=== PATIENT | male | born 1990 | race Caucasian/White ===

== ENCOUNTER 2020-11-15 14:23 | Emergency (ER) | payer MEDICAID, SELFPAY ==
--- NOTE | ~2020-11-15 | XR_ITS ---
EXAMINATION: LEFT KNEE, 2 VIEW CHEST, LEFT ANKLE, RIGHT RIBS, LEFT FOOT. CLINICAL INFORMATION: Fall COMPARISON: None TECHNIQUE: AP and lateral chest, 3 view right ribs, 3 views left foot, 3 views left ankle, and 4 views left knee. FINDINGS: AP and lateral views of the chest demonstrate small amount of disease within the right costophrenic angle which may relate to atelectasis or scarring. No pneumothorax identified. Heart normal size. No evidence of pulmonary edema. Status post previous right lung surgery with suture lines in place. There is some right pleural thickening present. No acute displaced right rib fracture identified. There is no evidence of acute fracture or dislocation of the left foot. There is a large amount soft tissue swelling seen about the tarsal bones. Views of the left ankle demonstrate a fracture of the medial malleolus with distraction of approximately 2 mm of fracture fragments. There is widening of the medial joint space. No dislocation is evident. Large amount soft tissue swelling is seen about the ankle. Views of the left knee do not demonstrate any evidence of acute fracture or dislocation. Knee joint spaces are maintained. No left knee effusion. XR/XR knee LT 4V IMPRESSION: Left ankle medial malleolar fracture with widening of the medial joint space. No acute parenchymal disease within the chest. No acute displaced right rib fracture. No acute fracture of the left knee. No acute fracture of the left foot.
--- NOTE | ~2020-11-15 | XR_ITS ---
EXAMINATION: LEFT KNEE, 2 VIEW CHEST, LEFT ANKLE, RIGHT RIBS, LEFT FOOT. CLINICAL INFORMATION: Fall COMPARISON: None TECHNIQUE: AP and lateral chest, 3 view right ribs, 3 views left foot, 3 views left ankle, and 4 views left knee. FINDINGS: AP and lateral views of the chest demonstrate small amount of disease within the right costophrenic angle which may relate to atelectasis or scarring. No pneumothorax identified. Heart normal size. No evidence of pulmonary edema. Status post previous right lung surgery with suture lines in place. There is some right pleural thickening present. No acute displaced right rib fracture identified. There is no evidence of acute fracture or dislocation of the left foot. There is a large amount soft tissue swelling seen about the tarsal bones. Views of the left ankle demonstrate a fracture of the medial malleolus with distraction of approximately 2 mm of fracture fragments. There is widening of the medial joint space. No dislocation is evident. Large amount soft tissue swelling is seen about the ankle. Views of the left knee do not demonstrate any evidence of acute fracture or dislocation. Knee joint spaces are maintained. No left knee effusion. XR/XR chest 2V IMPRESSION: Left ankle medial malleolar fracture with widening of the medial joint space. No acute parenchymal disease within the chest. No acute displaced right rib fracture. No acute fracture of the left knee. No acute fracture of the left foot.
--- NOTE | ~2020-11-15 | XR_ITS ---
EXAMINATION: LEFT KNEE, 2 VIEW CHEST, LEFT ANKLE, RIGHT RIBS, LEFT FOOT. CLINICAL INFORMATION: Fall COMPARISON: None TECHNIQUE: AP and lateral chest, 3 view right ribs, 3 views left foot, 3 views left ankle, and 4 views left knee. FINDINGS: AP and lateral views of the chest demonstrate small amount of disease within the right costophrenic angle which may relate to atelectasis or scarring. No pneumothorax identified. Heart normal size. No evidence of pulmonary edema. Status post previous right lung surgery with suture lines in place. There is some right pleural thickening present. No acute displaced right rib fracture identified. There is no evidence of acute fracture or dislocation of the left foot. There is a large amount soft tissue swelling seen about the tarsal bones. Views of the left ankle demonstrate a fracture of the medial malleolus with distraction of approximately 2 mm of fracture fragments. There is widening of the medial joint space. No dislocation is evident. Large amount soft tissue swelling is seen about the ankle. Views of the left knee do not demonstrate any evidence of acute fracture or dislocation. Knee joint spaces are maintained. No left knee effusion. XR/XR foot LT 2V IMPRESSION: Left ankle medial malleolar fracture with widening of the medial joint space. No acute parenchymal disease within the chest. No acute displaced right rib fracture. No acute fracture of the left knee. No acute fracture of the left foot.
--- NOTE | ~2020-11-15 | XR_ITS ---
EXAMINATION: LEFT KNEE, 2 VIEW CHEST, LEFT ANKLE, RIGHT RIBS, LEFT FOOT. CLINICAL INFORMATION: Fall COMPARISON: None TECHNIQUE: AP and lateral chest, 3 view right ribs, 3 views left foot, 3 views left ankle, and 4 views left knee. FINDINGS: AP and lateral views of the chest demonstrate small amount of disease within the right costophrenic angle which may relate to atelectasis or scarring. No pneumothorax identified. Heart normal size. No evidence of pulmonary edema. Status post previous right lung surgery with suture lines in place. There is some right pleural thickening present. No acute displaced right rib fracture identified. There is no evidence of acute fracture or dislocation of the left foot. There is a large amount soft tissue swelling seen about the tarsal bones. Views of the left ankle demonstrate a fracture of the medial malleolus with distraction of approximately 2 mm of fracture fragments. There is widening of the medial joint space. No dislocation is evident. Large amount soft tissue swelling is seen about the ankle. Views of the left knee do not demonstrate any evidence of acute fracture or dislocation. Knee joint spaces are maintained. No left knee effusion. XR/XR ribs RT 2V IMPRESSION: Left ankle medial malleolar fracture with widening of the medial joint space. No acute parenchymal disease within the chest. No acute displaced right rib fracture. No acute fracture of the left knee. No acute fracture of the left foot.
--- NOTE | ~2020-11-15 | XR_ITS ---
EXAMINATION: LEFT KNEE, 2 VIEW CHEST, LEFT ANKLE, RIGHT RIBS, LEFT FOOT. CLINICAL INFORMATION: Fall COMPARISON: None TECHNIQUE: AP and lateral chest, 3 view right ribs, 3 views left foot, 3 views left ankle, and 4 views left knee. FINDINGS: AP and lateral views of the chest demonstrate small amount of disease within the right costophrenic angle which may relate to atelectasis or scarring. No pneumothorax identified. Heart normal size. No evidence of pulmonary edema. Status post previous right lung surgery with suture lines in place. There is some right pleural thickening present. No acute displaced right rib fracture identified. There is no evidence of acute fracture or dislocation of the left foot. There is a large amount soft tissue swelling seen about the tarsal bones. Views of the left ankle demonstrate a fracture of the medial malleolus with distraction of approximately 2 mm of fracture fragments. There is widening of the medial joint space. No dislocation is evident. Large amount soft tissue swelling is seen about the ankle. Views of the left knee do not demonstrate any evidence of acute fracture or dislocation. Knee joint spaces are maintained. No left knee effusion. XR/XR ankle LT min 3V IMPRESSION: Left ankle medial malleolar fracture with widening of the medial joint space. No acute parenchymal disease within the chest. No acute displaced right rib fracture. No acute fracture of the left knee. No acute fracture of the left foot.
[2020-11-15 14:33] VITALS: BP 127/79; PULSE 102; RESP 18; TEMP 36.6; O2SAT 98; BMI 23.7
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
[2020-11-15] MEDS: Ketorolac Tromethamine 30 MG/ML VIAL IM (17:43)
[2020-11-15] MEDS: oxyCODONE HCl Immed Release 5 MG TABLET 10 MG PO (18:12)
--- NOTE | 2020-11-15 20:26 | PC.NURSE ---
SPLINT TO LEFT FOOT POSTERIOR WITH STIRRUP SPLINT TO LEFT FOOT WITH HELP FROM PCT LISANDRA CHECKED BY DAX HYLTON. +CMS TO TOES.
== END 2020-11-15 18:50 | disposition home or self-care (01) ==
PROVIDERS: Emergency Provider Emergency Medicine Emergency Medical Services
DX: S82.55XA Nondisplaced fracture of medial malleolus of left tibia, initial encounter for closed fracture (principal); S20.211A Contusion of right front wall of thorax, initial encounter; V18.0XXA Pedal cycle driver injured in noncollision transport accident in nontraffic accident, initial encounter; Y93.55 Activity, bike riding; Y92.414 Local residential or business street as the place of occurrence of the external cause; Y99.9 Unspecified external cause status
CPT/HCPCS: 29515; 71046; 71100; 73564; 73610; 73620; 96372; 99284; J1885

== ENCOUNTER → 2020-11-17 13:43 | Outpatient (BNVA) | payer MEDICAID, SELFPAY | PROVIDERS: Visit Provider Physician Assistant | DX: S82.52XA Displaced fracture of medial malleolus of left tibia, initial encounter for closed fracture (principal) | CPT/HCPCS: 99202 ==

== ENCOUNTER 2020-11-20 17:33 | Inpatient (IN) | payer MEDICAID, SELFPAY ==
--- NOTE | 2020-11-19 13:05 | HO.ANESPROP2 ---
Documented by User: Sasha Talbot 11/19/20 13:06 HPI - Anesthesia Eval Consult details Narrative: 30yo M for Ankle Fracture ORIF,operative fixation left ankle PMFSH Active Problems Active Problems: All Active Problems (Updated 11/17/20 @ 17:27 by Demi Smiley PA-C) Fracture of medial malleolus of left tibia (Acute) Past Medical History Medical History (Updated 11/20/20 @ 13:16 by Precious Sosa) Fracture of arm Pneumothorax, right Social History Social History (Updated 11/20/20 @ 13:20 by Precious Sosa) Alcohol intake: unknown Smoking Status: Never smoker Use of substances other than those prescribed or required for medical reasons: No Have you been hit, kicked, punched, or otherwise hurt by someone within the past year? 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 Meds Allergies Allergy/AdvReac Type Severity Reaction Status Date / Time No Known Allergies Allergy Verified 11/15/20 14:38 Exam Exam Date and Time: November 19, 2020 1305 Assessment and Plan Assessment Anesthesia Assessment: Chart Reviewed Documented by User: Precious Sosa 11/20/20 13:33 PMFSH Past Medical History Medical History (Updated 11/20/20 @ 13:16 by Precious Sosa) Fracture of arm Pneumothorax, right Family History Family history of problems with anesthesia: No Surgical History History of Problems with Anesthesia: No Social History Social History (Updated 11/20/20 @ 13:20 by Precious Sosa) Alcohol intake: unknown Smoking Status: Never smoker Use of substances other than those prescribed or required for medical reasons: No Have you been hit, kicked, punched, or otherwise hurt by someone within the past year? 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 Meds Allergies Allergy/AdvReac Type Severity Reaction Status Date / Time No Known Allergies Allergy Verified 11/15/20 14:38 Exam Height,Weight and Vital Signs: Vital Signs Temp Pulse Resp BP Pulse Ox 11/20/20 12:02 79 18 114/75 11/20/20 11:44 97.6 F 78 18 97/68 98 Airway Mallampati Class: II TM Dist: >3cm Neck ROM: Full Heart: RRR Lungs: CTAB Assessment and Plan Assessment Anesthesia Assessment: Anesthesia Plan Discussed and Chart Reviewed Final Anesthetic Review NPO: Yes ASA Class: I Final Preanesthetic Review: No Changes in Pt Med Stat, Meds/Allgs Chart Reviewed, Consent Obtained/Reviewed and Anes Risks/Benef Reviewed Patient Risk: Low Procedure Risk: Intermediate Assessment/Block/Sedation in SS: Assess/Block/Sedation-SS Anesthetic Plan Anesthetic Plan: GA Disposition: Standard PACU
[2020-11-20] VITALS (27 sets, daily range): BP systolic 97–160; BP diastolic 55–97; PULSE 72–117; RESP 12–20; TEMP 36.4–37.3; O2SAT 93–99; BMI 23.7
--- NOTE | ~2020-11-20 | FL_ITS ---
EXAMINATION: XR FLUOROSCOPY WITH IMAGES CLINICAL INFORMATION: Ankle fracture COMPARISON: Previous x-rays 11/15/2020 TECHNIQUE: Fluoroscopy performed by Dr. Shahram Elizalde. Fluoroscopy time: 1.5 minutes DAP: [id number] Images: 6 FINDINGS: Initial image demonstrates a view of the lower leg with a nondisplaced oblique fibular shaft fracture. Subsequent images demonstrate ORIF of the transverse medial malleolar fracture with 2 screws and with improved alignment and new surgical anchors in the distal fibular and tibial metaphysis and stabilization of the distal tibiofibular joint. No ankle mortise widening is seen. FL/FL guidance in OR IMPRESSION: Fluoroscopic guidance for ORIF of left ankle fracture.
[2020-11-20] MEDS: Lactated Ringers 1,000 ML 100 ML IVCONT ×2 (12:02→20:23)
--- NOTE | 2020-11-20 13:27 | MHC.SHP ---
Pre-Procedural Eval Section A The patient is an INPATIENT: No Changes since office visit: Yes Patient answered all questions; No Cold of Flu in the past 2 weeks, No New Medical Problems and No Changes in Medication The History & Physical has been completed within 30 days and I have reviewed it.: Yes Section B Chief Complaint: left ankle fx Allergies: Allergies Allergy/AdvReac Type Severity Reaction Status Date / Time No Known Allergies Allergy Verified 11/15/20 14:38 Plan I have reviewed the history and physical and performed a pertinent physical examination on my patient. No changes have occurred unless specified.
--- NOTE | 2020-11-20 16:01 | P.BOP_ITS ---
Brief Operative Note Date of Service: 11/20/20 Pre-op diagnosis: left medial malleolar fracture Post-op diagnosis: same (left medial malleolus fracture) Procedure: orif medial malleolus orif syndesmosis Implants: 40 mm 4.0 partiall threaded cannulated screws x 2- tiara styrker 2 hol lateral butress plaste with arthrex fiberwire x2 Surgeon: Shahram Elizalde MD Anesthesia: GETA Was an Developer Programmer Analyst used for this Procedure?: No Estimated blood loss (mL): 20 Tourniquet time (min): 102 Pathology: none sent Condition: stable Disposition: PACU
[2020-11-20] MEDS: oxyCODONE HCl Immed Release 5 MG TABLET PO ×2 (16:39→17:17)
[2020-11-20] MEDS: Acetaminophen 325 MG TABLET 650 MG PO (16:39)
[2020-11-20] MEDS: ondansetron HCL 4 MG/2 ML VIAL IVPUSH (16:40)
--- NOTE | 2020-11-20 16:46 | PC.NURSE ---
patient awake conversing resp easy regualar hob elevated. taking sips po fluid. medicated for pain. left ankle elevated further on pillows and ice packs placed.
[2020-11-20] MEDS: HYDROmorphone HCl 0.5 MG/0.5 ML SYRINGE IVPUSH ×5 (16:58→22:35)
--- NOTE | 2020-11-20 17:16 | PC.NURSE ---
dr. yan called to bedside made aware of ongoing pain control issues and medications given iv dilaudid, oxycodone, tylenol, and iv toradol in the O.R. new orders given to administer repeat dose of oxycodone.
[2020-11-20] MEDS: oxyCODONE HCl Immed Release 5 MG TABLET 10 MG PO (18:04)
[2020-11-20] MEDS: oxyCODONE HCl ER 10 MG TAB.ER.12H PO (20:17)
[2020-11-20] MEDS: LORazepam 0.5 MG TABLET PO (21:18)
[2020-11-20] MEDS: Nicotine 21 MG PATCH.TD24 TRANSDERMA (21:18)
[2020-11-21] MEDS: HYDROmorphone HCl 0.5 MG/0.5 ML SYRINGE IVPUSH ×3 (03:25→11:02)
[2020-11-21 04:00] VITALS: BP 119/77; PULSE 77; RESP 18; TEMP 36.9; O2SAT 100
[2020-11-21] MEDS: Lactated Ringers 1,000 ML 100 ML IVCONT (05:14)
[2020-11-21] MEDS: oxyCODONE HCl Immed Release 5 MG TABLET 10 MG PO (05:16)
[2020-11-21 07:51] VITALS: BP 124/69; PULSE 95; RESP 17; TEMP 37.2; O2SAT 98
[2020-11-21] MEDS: oxyCODONE HCl ER 10 MG TAB.ER.12H PO (08:01)
--- NOTE | 2020-11-21 08:52 | MHC.CM.PN ---
PATIENT IS FULLY INDEPENDENT WITH HIS ADLS. HE DOES HAVE A ROLLATOR IN ROOM TO HELP WITH AMBULATION. FRIEND IS IN ROOM TO PROVIDE TRANSPORT HOME AT DISCHARGE, WHICH IS ANTICIPATED FOR TODAY. RN AWARE OF PLAN.
--- NOTE | 2020-11-21 10:32 | P.DS_ITS ---
DS: Providers Provider Date of Service: 11/21/20 Date of admission: 11/20/20 17:33 Primary care physician: None Physician DS: Diagnosis Discharge Diagnosis (1) Fracture of medial malleolus of left tibia: Status: Acute Problem details: THis is a 30 yo male who presented to the office with an injury he sustained to the left ankle. He was found to have a displaced malleolar fracture with widening of the mortise. He was booked for ORIF left ankle. DS: Medications Discharge Medications Home Medications: Previous Rx's Medication Instructions Recorded naproxen 500 mg PO BID PRN #20 tab 11/15/20 acetaminophen 650 mg PO Q4H PRN 30 Days #240 tab 11/21/20 oxycodone 10 mg PO Q4H PRN 7 Days #42 tab 11/21/20 DS: Summary Hospital Course Hospital Course: Mr. Lancaster underwent a successful ORIF left ankle with Dr Elizalde. He was transferred to PACU where he was found to have uncontrollable pain with continued doses of medication. At that time, the decision was made to admit him to Extended stay. He was given Tylenol 650 po q6 hrs prn, Oxycontin 10mg bid, Oxycodone 10mg po q4-6 prn, Dilaudid .5mg q3 prn and Lorazepam .5mg once at bedtime. Prior to discharge he was tolerating pain well. Splint intact. Plan is to discharge him home. Time Spent with Patient Time attestation: Total time spent providing and/or coordinating discharge services: Discharge coordination time: Less than 30 minutes Physical Exam Vital Signs: Vital Signs: Last Vital Signs Temp 98.9 F 11/21/20 07:51 Pulse 95 11/21/20 07:51 Resp 17 11/21/20 07:51 BP 124/69 11/21/20 07:51 Pulse Ox 98 11/21/20 07:51 Body Mass Index 23.7 Const: General: cooperative, healthy appearing and no acute distress Resp: Effort & Inspection: normal respiratory effort and able to speak in complete sentences Cardio: Rate: regular rate Peripheral pulses: Peripheral pulses 2+ throughout GI: Palpation (GI): Soft to palpation Skin: General skin exam: no rashes or lesions noted Extrem: Other: Left ankle splint intact. Toes have full sensation and mobility with good cap. refll. Discharge Plan Discharge Patient Disposition: Home, Self-Care Discharge Diagnosis: s/p Left ankle ORIF Referrals: Demi Smiley PA-C [Physician Filling Station Attendant] - 2 Weeks Discharge Medications: New oxycodone 10 mg tablet 10 mg PO Q4H PRN (Reason: Pain, Moderate (Pain Scale 4-6) 7 Days Qty: 42 RF: 0 acetaminophen 325 mg Tablet 650 mg PO Q4H PRN (Reason: Pain, Mild (Pain Scale 1-3)) 30 Days Qty: 240 RF: 0 Continued naproxen 500 mg tablet 500 mg PO BID PRN (Reason: pain) Qty: 20 RF: 0 Discontinued oxycodone 5 mg tablet 5 mg PO Q8H PRN (Reason: pain) 4 Days Qty: 12 RF: 0 Discharge Orders: Discharge Order (Routine); Ordered 11/20/20 Ordered By: Shahram Elizalde Diet: regular diet Activity on Discharge: Walk with crutches Stand Alone Forms: Work/School Release Activity Restrictions/Additional Instructions: non weight bearing with crutches. elevate above heart. keep splint clean and dry. f/u Ortho in 2 weeks Care Plan Goals: Restore function of joint Health Concerns: None Plan of Treatment: * NWB x 6 weeks operative leg * Keep splint clean, dry and intact * Elevate leg above the level of the heart on 3 pillows * Any questions or concerns please call the office AYDEE * Follow up with Orthopedics in 2 weeks. Assessment: Pain management NWB left leg with crutches Patient Instructions: ORIF of an Ankle Fracture (DC)
--- NOTE | 2020-11-22 13:22 | HO.POSTANES ---
Post Anesthesia Evaluation Post Anesthesia Evaluation Anesthesia: General LMA Mental Status: Awake Pain Control: Satisfactory (Immediate postop c/o pain, moved to floor) Nausea/Vomiting: None Hydration: Adequate Anesthesia-Related Issues: No Anes. Related Issues
--- NOTE | 2021-02-03 11:39 | P.OP_ITS ---
Operative Note Operative Note Date of Service: 11/20/20 Narrative: Pre-op diagnosis: left medial malleolar fracture Post-op diagnosis: same (left medial malleolus fracture) Procedure: orif medial malleolus orif syndesmosis Implants: 40 mm 4.0 partiall threaded cannulated screws x 2- tiara styrker 2 hol lateral butress plaste with arthrex fiberwire x2 Surgeon: Sahhram Elizalde MD Anesthesia: GETA Was an [employer] Machine Operator used for this Procedure?: No Estimated blood loss (mL): 20 Tourniquet time (min): 102 Pathology: none sent Condition: stable Disposition: PACU Patient was brought to the operating room and placed supine on the surgical table. He was prepped and draped in standard sterile fashion and a time out was called to indentify proper site, proper procedure and IV antibiotics per weight were administered. I began by exsanguinating the limb and insufflating tourniquet to 300 mm Hg. I then made a standard oblique incision over the medial malleolus. Care was taken to avoid the saphenous neurovascular bundle. I used a combination of periosteal elevator and irrigation and rongeur to visualize the transverse fracture of the medial malleolus. Once this was done a reduction for tenaculum was used to reduce the fracture and to threaded K-wires were placed from distal to proximal and medial to lateral traversing the fracture. Biplanar fluoroscopy was used to confirm their location. I then overdrilled and placed 2 40 mm 4.0 partially-threaded cannulated screws in standard AO technique. Once this was done I assessed the syndesmosis which was disrupted. I then placed 2 Arthrex syndesmosis tight ropes from lateral to medial just proximal to the physeal scar. These were placed through a 2 hole lateral buttress plate. These were tightened and biplanar fluoroscopy was used to confirm appropriate location of the hardware and syndesmosis reduction. I was satisfied with the location of the hardware and the alignment of the syndesmosis. Therefore all instrumentation was removed and copious irrigation was performed. Layered closure was performed with marianna on the skin. Patient was then placed into sterile dressings and a well-padded posterior splint. He was extubated brought to recovery room in stable condition there were no known complications.
== END 2020-11-21 11:41 | disposition home or self-care (01) | DRG 313 ==
LOC: HO.S3 19:24
PROVIDERS: Admitting Provider Orthopaedic Surgery; Visit Provider Orthopaedic Surgery
PROC: 0QSH04Z Reposition Left Tibia with Internal Fixation Device, Open Approach (ICD-10-PCS; CPT 27766; principal; 2020-11-20 13:00)
DX: S82.52XA Displaced fracture of medial malleolus of left tibia, initial encounter for closed fracture (principal); X58.XXXA Exposure to other specified factors, initial encounter; Y93.9 Activity, unspecified; Y92.9 Unspecified place or not applicable; Y99.9 Unspecified external cause status
CPT/HCPCS: 27766; C1713; J0690; J1170; J2250; J2405; J3010

== ENCOUNTER 2020-12-04 07:59 | Outpatient (REF) | payer OTHER, SELFPAY ==
--- NOTE | ~2020-12-04 | XR_ITS ---
EXAMINATION: XR TIBIA AND FIBULA, LEFT XR ANKLE, LEFT CLINICAL INFORMATION: Pain. Fracture. COMPARISON: Left knee, left ankle, and left foot radiographs dated 11/15/2020 TECHNIQUE: AP and lateral views of the left tibia and fibula. AP, mortise, and lateral views of the left ankle. FINDINGS: Mildly displaced and comminuted oblique fracture through the mid fibular diaphysis with approximately 0.3 cm cortical step-off laterally. No significant new bone/callus formation. Interval placement of orthopedic screws through the medial malleolar fracture with orthopedic hardware placed across the tibiofibular syndesmosis. The fracture now appears in near-anatomic alignment. Interval reduction of the previously seen tibiotalar subluxation. The ankle mortise is maintained. Medial and lateral surgical marianna. Circumferential soft tissue swelling. XR/XR ankle LT min 3V IMPRESSION: 1. Mildly displaced and comminuted fibular diaphyseal fracture. 2. Orthopedic hardware at the medial malleolus and across the distal tibiofibular syndesmosis. The malleolar fracture and tibiotalar subluxation now appear in near-anatomic alignment.
--- NOTE | ~2020-12-04 | XR_ITS ---
EXAMINATION: XR TIBIA AND FIBULA, LEFT XR ANKLE, LEFT CLINICAL INFORMATION: Pain. Fracture. COMPARISON: Left knee, left ankle, and left foot radiographs dated 11/15/2020 TECHNIQUE: AP and lateral views of the left tibia and fibula. AP, mortise, and lateral views of the left ankle. FINDINGS: Mildly displaced and comminuted oblique fracture through the mid fibular diaphysis with approximately 0.3 cm cortical step-off laterally. No significant new bone/callus formation. Interval placement of orthopedic screws through the medial malleolar fracture with orthopedic hardware placed across the tibiofibular syndesmosis. The fracture now appears in near-anatomic alignment. Interval reduction of the previously seen tibiotalar subluxation. The ankle mortise is maintained. Medial and lateral surgical marianna. Circumferential soft tissue swelling. XR/XR tibia fibula LT 2V IMPRESSION: 1. Mildly displaced and comminuted fibular diaphyseal fracture. 2. Orthopedic hardware at the medial malleolus and across the distal tibiofibular syndesmosis. The malleolar fracture and tibiotalar subluxation now appear in near-anatomic alignment.
== END 2020-12-04 08:00 | disposition home or self-care (01) ==
LOC: HO.HOSX 07:59
PROVIDERS: Visit Provider Physician Assistant
DX: S82.292D Other fracture of shaft of left tibia, subsequent encounter for closed fracture with routine healing (principal); S82.402D Unspecified fracture of shaft of left fibula, subsequent encounter for closed fracture with routine healing
CPT/HCPCS: 29405; 73590; 73610; 99212

== ENCOUNTER 2021-01-04 13:43 | Outpatient (REF) | payer OTHER, SELFPAY ==
--- NOTE | ~2021-01-04 | XR_ITS ---
EXAMINATION: XR ANKLE, LEFT CLINICAL INFORMATION: Follow-up left fibular fracture COMPARISON: Left ankle 12/04/2020. TECHNIQUE: AP, lateral, and mortise views of the left ankle. FINDINGS: The surgical marianna have been removed. There are 2 malleolar screws stabilizing medial malleolar fracture. There is a lateral distal fibular button is stable. The ankle mortise and subtalar joints ar are normal. There is bibasilar malleolar soft tissue swelling. XR/XR ankle LT min 3V IMPRESSION: There are 2 screws stabilizing medial malleolar in alignment. There is a lateral distal fibular button unchanged to previous study. Skin marianna have been removed There is bimalleolar soft tissue swelling.
== END 2021-01-04 13:44 | disposition home or self-care (01) ==
LOC: HO.HOSX 13:43
PROVIDERS: Visit Provider Physician Assistant
DX: S82.402A Unspecified fracture of shaft of left fibula, initial encounter for closed fracture (principal); Z87.81 Personal history of (healed) traumatic fracture; Z98.890 Other specified postprocedural states
CPT/HCPCS: 73610; 99212

== ENCOUNTER → 2021-01-11 10:37 | Outpatient (BNVA) | payer OTHER, SELFPAY | PROVIDERS: Visit Provider Physician Assistant | DX: Z98.890 Other specified postprocedural states (principal) | CPT/HCPCS: 99212 ==

== ENCOUNTER 2021-02-02 12:42 | Outpatient (RCR) | payer OTHER, SELFPAY | END 2021-06-04 14:29 | disposition home or self-care (01) | LOC: HO.PTWFD 12:42 | PROVIDERS: PCP Family Medicine; Visit Provider Physician Assistant | DX: Z98.890 Other specified postprocedural states (principal); Z87.81 Personal history of (healed) traumatic fracture | CPT/HCPCS: 97110; 97140; 97161; 97535 ==

== ENCOUNTER 2021-02-08 12:17 | Outpatient (REF) | payer OTHER, SELFPAY | END 2021-02-08 12:18 | disposition home or self-care (01) | LOC: HO.HOSX 12:17 | PROVIDERS: Visit Provider Physician Assistant | DX: Z13.89 Encounter for screening for other disorder (principal) ==

== ENCOUNTER → 2021-02-16 08:57 | Outpatient (BNVA) | payer OTHER, SELFPAY | PROVIDERS: PCP Family Medicine; Visit Provider Physician Assistant | DX: Z98.890 Other specified postprocedural states (principal); S82.52XD Displaced fracture of medial malleolus of left tibia, subsequent encounter for closed fracture with routine healing | CPT/HCPCS: 99212 ==